=== PATIENT | female | born 1980 | race Two or more races ===

== ENCOUNTER 2017-12-23 17:38 | Emergency (ER) | payer MEDICAID ==
[~2017-12-23] VITALS: Ht 165.1 cm; Wt 93.9 kg
[2017-12-23 19:33] LABS: Basophils # (auto) 0 uL; Basophils % (auto) 0.2 % (0.0-2.0); Eosinophils # (auto) 0 uL; Eosinophils % (auto) 0.1 % (0.0-7.0); Hematocrit 39.9 % (36.0-46.0); Hemoglobin 13.4 g/dL (12.2-16.2); Lymphocytes # (auto) 1.6 uL; Lymphocytes % (auto) 12.5 % (10.0-50.0); Mean Corpuscular Hemoglobin 28.8 pg (28.0-32.0); Mean Corpuscular Hgb Conc. 33.7 g/dL (32.0-36.0); Mean Corpuscular Volume 85.5 fL (80.0-100.0); Monocytes # (auto) 0.8 uL; Monocytes % (auto) 6.5 % (0.0-12.0); Neutrophils # (auto) 10.1 uL; Neutrophils % (auto) 80.7 % (37.0-80.0); Nucleated Red Blood Cells % 0.1 %; Platelet Count (auto) 265 10^3/uL (140-450); Red Blood Cells 4.67 10^6/uL (4.0-5.20); Red Cell Distribution Width 13.7 % (11.8-14.3); White Blood Cell 12.5 10^3/uL (4.4-10.8)
[2017-12-23 19:41] LABS: Albumin 3.6 g/dL (3.4-5.0); BUN/Creatinine Ratio 9.7; Calcium 8.9 mg/dL (8.5-10.1); Potassium 3.7 mmol/L (3.5-5.1)
[2017-12-23 19:44] LABS: Bilirubin, Total 0.7 mg/dL (0.2-1.0); Total Protein 7.7 g/dL (6.4-8.2)
[2017-12-23 20:06] LABS: Urine Bacteria NONE SEEN /hpf (None Seen); Urine Blood Negative /uL (Negative); Urine Mucus FEW (None Seen); Urine Specific Gravity 1.011 (1.001-1.035); Urine WBC 3 /hpf (0 - 5)
[2017-12-24] MEDS ORDERED: MORPHINE SULFATE 4 MG/ML SYR/VIAL IV ONE (00:45)
[2017-12-24] MEDS ORDERED: ONDANSETRON HCL 4 MG/2 ML VIAL IV ONE (00:45)
[2017-12-24 00:54] VITALS: BP 109/73
[2017-12-24] MEDS ORDERED: KETOROLAC TROMETH 30 MG/ML 1ML VIAL IV ONE (02:00)
[2017-12-24] MEDS ORDERED: cefTRIAXone 1GM/50ML D5W 50 ML IV ONE (02:15)
[2017-12-24] MEDS ORDERED: SODIUM CHLORIDE 0.9% 1,000 ML IV ONE (02:15)
== END 2017-12-24 04:19 | disposition home or self-care (01) ==
LOC: ER 17:54
DX: N20.0 Calculus of kidney (principal); N39.0 Urinary tract infection, site not specified; R10.9 Unspecified abdominal pain
CPT/HCPCS: 36415; 74176; 80053; 81001; 82150; 83690; 84702; 85025; 96365; 96375; 99285; J0696; J1885; J2270; J2405; J7030

== ENCOUNTER 2018-05-28 12:28 | Emergency (ER) | payer SELFPAY ==
[~2018-05-28] VITALS: Ht 167.6 cm; Wt 98.0 kg
[2018-05-28 12:49] VITALS: BP 140/80
[2018-05-28] MEDS ORDERED: IBUPROFEN 800 MG TAB PO ONE (13:45)
== END 2018-05-28 14:42 | disposition home or self-care (01) ==
LOC: ER 12:28
DX: S93.602A Unspecified sprain of left foot, initial encounter (principal); W01.0XXA Fall on same level from slipping, tripping and stumbling without subsequent striking against object, initial encounter; Y93.89 Activity, other specified; Y99.8 Other external cause status; Y92.89 Other specified places as the place of occurrence of the external cause
CPT/HCPCS: 73630

== ENCOUNTER 2019-09-16 19:36 | Emergency (ER) | payer MEDICAID, OTHER ==
[~2019-09-16] VITALS: Ht 165.1 cm; Wt 99.8 kg
[2019-09-16 20:10] VITALS: BP 133/78
[2019-09-17] MEDS ORDERED: ONDANSETRON ODT 4 MG TAB PO ONE (00:30)
[2019-09-17] MEDS ORDERED: ACETAMINOPHEN/CODEINE#3 (300/30mg) TAB PO ONE (00:30)
== END 2019-09-17 01:41 | disposition home or self-care (01) ==
LOC: ER 19:36
DX: R51 Headache (principal); F41.9 Anxiety disorder, unspecified
CPT/HCPCS: 70450; 99284; Q0162

== ENCOUNTER 2019-11-28 02:44 | Emergency (ER) | payer MEDICAID ==
[~2019-11-28] VITALS: Ht 165.1 cm; Wt 99.8 kg
[2019-11-28 03:16] LABS: Basophils # (auto) 0.1 10 ^3/uL (0-0.2); Basophils % (auto) 1.1 % (0.0-2.0); Eosinophils # (auto) 0.1 10 ^3/uL (0-0.8); Eosinophils % (auto) 0.8 % (0.0-7.0); Hematocrit 40.3 % (36.0-46.0); Hemoglobin 13.4 g/dL (12.2-16.2); Lymphocytes # (auto) 2.7 10 ^3/uL (0.4-5.4); Lymphocytes % (auto) 31.8 % (10.0-50.0); Mean Corpuscular Hemoglobin 29.3 pg (28.0-32.0); Mean Corpuscular Hgb Conc. 33.3 g/dL (32.0-36.0); Mean Corpuscular Volume 88.1 fL (80.0-100.0); Monocytes # (auto) 0.6 10 ^3/uL (0-1.3); Monocytes % (auto) 6.8 % (0.0-12.0); Neutrophils % (auto) 59.5 % (37.0-80.0); Nucleated Red Blood Cells % 0.1 %; Platelet Count (auto) 354 10^3/uL (140-450); Red Blood Cells 4.58 10^6/uL (4.0-5.20); Red Cell Distribution Width 13.6 % (11.8-14.3); White Blood Cell 8.4 10^3/uL (4.4-10.8)
[2019-11-28 03:32] LABS: Calcium 8.7 mg/dL (8.5-10.1); Magnesium 2.3 mg/dL (1.6-2.6)
[2019-11-28 03:35] LABS: BUN/Creatinine Ratio 9.5; Bilirubin, Total 0.3 mg/dL (0.2-1.0); Potassium 2.9 mmol/L (3.5-5.1); Total Protein 7.6 g/dL (6.4-8.2)
[2019-11-28] MEDS ORDERED: THIAMINE INJ 100 MG in SODIUM CHLORIDE 0.9% 1,000 ML IV ONE (03:45)
[2019-11-28] MEDS ORDERED: SODIUM CHLORIDE 0.9% 1,000 ML IV ONE (03:45)
[2019-11-28] MEDS ORDERED: POTASSIUM CHL 20MEQ/100ML 100 ML IV ONE (03:45)
[2019-11-28] MEDS ORDERED: PROMETHAZINE HCL 25 MG/ML 1ML IV ONE (03:45)
[2019-11-28 04:04] LABS: Amylase 30 U/L (25-115); Lipase 119 U/L (73-393)
[2019-11-28] MEDS ORDERED: THIAMINE 100mg/ml INJ (200mg/2ml VIAL) ONE (04:13)
[2019-11-28] MEDS ORDERED: MORPHINE SULFATE 4 MG/ML SYR/VIAL IV ONE (04:15)
[2019-11-28 08:49] VITALS: BP 98/58
== END 2019-11-28 09:22 | disposition home or self-care (01) ==
LOC: ER 02:44
DX: K29.20 Alcoholic gastritis without bleeding (principal); F10.129 Alcohol abuse with intoxication, unspecified
CPT/HCPCS: 36415; 74176; 80053; 80320; 82150; 83690; 83735; 84702; 85025; 96365; 96375; 99284; J2270; J2550; J3411; J3480; J7030; 96361

== ENCOUNTER 2022-02-05 08:00 | Day surgery (SDC) | payer MEDICAID ==
[2022-02-05] VITALS (7 sets, daily range): BP systolic 96–118; BP diastolic 65–86
[~2022-02-05] VITALS: Ht 165.1 cm; Wt 105.2 kg
[~2022-02-05 08:00] MED LIST: BUSP15TA60 PO; ERGO50003 PO; OMEG100078 PO; ROSU20TA14 PO; SERT-160 PO; TRAZ100T3 PO
[2022-02-05] MEDS ORDERED: IODIXANOL 320MG/ML 100ML BTL IV ONE (10:00)
[2022-02-05] MEDS ORDERED: LIDOCAINE 2%HCL (LOCAL ANESTH.) INJ 10ml MDV ONE (10:01)
[2022-02-05] MEDS ORDERED: ANGIOMAX 250 MG VIAL IV ONE (10:02)
[2022-02-05] MEDS ORDERED: HEPARIN SODIUM (PORCINE) 5000 UNITS/ML 1ML VIAL ONE (10:03)
[2022-02-05] MEDS ORDERED: SODIUM CHL 0.9% 0 ML ONE (10:03)
[2022-02-05] MEDS ORDERED: VERAPAMIL 2.5MG/ML INJ 2ML VIAL IV ONE (10:03)
[2022-02-05] MEDS ORDERED: MIDAZOLAM HCL 2MG/2ML 2ml VIAL (1mg/ml) ONE (10:03)
[2022-02-05] MEDS ORDERED: fentaNYL CITRATE 100 MCG/2 ML VL ONE (10:03)
== END 2022-02-05 12:58 | disposition home or self-care (01) ==
LOC: CATH 08:00
PROVIDERS: ATTEND Internal Medicine Cardiovascular Disease
DX: R94.39 Abnormal result of other cardiovascular function study (principal); R07.89 Other chest pain; E66.01 Morbid (severe) obesity due to excess calories; E78.5 Hyperlipidemia, unspecified; D25.9 Leiomyoma of uterus, unspecified; Z98.890 Other specified postprocedural states; Z20.822 Contact with and (suspected) exposure to COVID-19
CPT/HCPCS: 93458; C1769; C1887; C1894; J1644; J2001; J2250; J3010; J7030; Q9967; U0003; 99152